=== PATIENT | female | born 1995 | race African-American/Black ===

== ENCOUNTER 2020-03-14 10:39 | Emergency (ER) | payer OTHER ==
[~2020-03-14] VITALS: Ht 162.6 cm; Wt 75.3 kg
--- NOTE | 2020-03-14 10:51 | PHYS DOC ---
Past History Past Medical History: No Pertinent History Adult General Chief Complaint Chief Complaint: OVERDOSE HPI HPI Patient is a 24-year-old female who presents for overdose via EMS. Significant other at home called because patient was more lethargic and somnolent than usual. EMS arrived to scene, patient reportedly took unknown amount of Tylenol and " half a bottle" of cough syrup this morning at 0300 hrs. States she has no suicidal ideations and this was not a suicide attempt, admits " I like feeling numb and this makes me numb. EMS grabbed cough syrup bottle and Tylenol bottle and brought to ER with patient. And route, patient hemodynamically stable with unremarkable [id number] glucose. On arrival to ER, she has no complaints. Admit she is sleepy. No trauma, no reports of physical assault or domestic violence, no fever or COVID-19 contact. After reviewing patient's cough syrup b ottle in Tylenol, it is estimated she took 5 g of Tylenol and the following combination of medications via cough syrup: 2600 mg Tylenol, 120 dextromethorphan, 50 doxylamine Review of Systems Review of Systems Fourteen body systems of review of systems have been reviewed. See HPI for pertinent positives and negative responses, other reeves all other systems are negative, non-pertinent or non-contributory Allergies Allergies Allergies Coded Allergies Type Severity Reaction Last Updated Verified No Known Drug Allergies 03/14/20 No Physical Exam Physical Exam Constitutional: Pt is oriented to person, place, and time. Pt appears sleepy. She is naked on arrival wrapped in a Sommer robe HEENT: Head: Normocephalic and atraumatic. TMs clear, no hemotympanum Conjunctivae and EOM are normal. Pupils are equal, round, and reactive to light. Oropharynx is clear and moist. No hematomas or lacerations or abrasions to face or scalp OP clear, no blood, no malocclusion, dentition intact Nares clear, no nasal septal hematoma, right nose ring in place Midface stable Neck: C-spine midline nontender, no step-offs Cardiovascular: Normal rate, regular rhythm and normal heart sounds. Pulmonary/Chest: Effort normal and breath sounds normal. No respiratory distress. No wheezes. CTA bilaterally Abdominal: Soft. Bowel sounds are normal. Pt exhibits no distension. There is no tenderness. Musculoskeletal: No bony tenderness to extremities, no deformities, full ROM extremities Chest wall stable Pelvis stable and non-tender Neurological: Pt is alert and oriented to person, place, and time. Moving all extremities willfully, able to wiggle all fingers and toes Alert and oriented x 3 Motor and sensory function grossly intact Skin: Skin is warm and dry. No abrasions, no lacerations Psychiatric: Behavior is appropriate for situation Current Patient Data Vital Signs Vital Signs Date Time Temp Pulse Resp B/P (MAP) Pulse Ox O2 Delivery O2 Flow Rate FiO2 03/14/20 10:45 99.3 99 17 112/63 (79) 100 Room Air Lab Results Laboratory Tests Test 03/14/20 10:53 03/14/20 11:05 03/14/20 11:14 03/14/20 12:49 White Blood Count 5.6 x10^3/uL Red Blood Count 4.62 x10^6/uL Hemoglobin 12.2 g/dL Hematocrit 37.6 % Mean Corpuscular Volume 81 fL Mean Corpuscular Hemoglobin 26 pg Mean Corpuscular Hemoglobin Concent 33 g/dL Red Cell Distribution Width 18.3 % Platelet Count 202 x10^3/uL Neutrophils (%) (Auto) 60 % Lymphocytes (%) (Auto) 31 % Monocytes (%) (Auto) 8 % Eosinophils (%) (Auto) 1 % Basophils (%) (Auto) 1 % Neutrophils # (Auto) 3.3 x10^3uL Lymphocytes # (Auto) 1.7 x10^3/uL Monocytes # (Auto) 0.4 x10^3/uL Eosinophils # (Auto) 0.0 x10^3/uL Basophils # (Auto) 0.1 x10^3/uL Prothrombin Time 10.5 SEC Prothromb Time International Ratio 1.0 Activated Partial Thromboplast Time 22 SEC Sodium Level 136 mmol/L Potassium Level 3.6 mmol/L Chloride Level 102 mmol/L Carbon Dioxide Level 23 mmol/L Anion Gap 11 Blood Urea Nitrogen 12 mg/dL Creatinine 0.8 mg/dL Estimated GFR (Cockcroft-Gault) 104.9 BUN/Creatinine Ratio 15 Glucose Level 107 mg/dL Calcium Level 8.5 mg/dL Magnesium Level 1.8 mg/dL Total Bilirubin 0.4 mg/dL Aspartate Amino Transf (AST/SGOT) 14 U/L Alanine Aminotransferase (ALT/SGPT) 21 U/L Alkaline Phosphatase 37 U/L Total Protein 7.7 g/dL Albumin 3.9 g/dL Albumin/Globulin Ratio 1.0 Salicylates Level < 2.8 mg/dL Salicylate Last Dose Date Unknown Salicylate Last Dose Time Unknown Acetaminophen Level 5.4 mcg/mL Acetaminophen Last Dose Date Unknown Acetaminophen Last Dose Time Unknown Ethyl Alcohol Level < 10 mg/dL Urine Collection Type Unknown Urine Color Yellow Urine Clarity Hazy Urine pH 6.5 Urine Specific Wittman 1.025 Urine Protein 30 mg/dl Urine Glucose (UA) Neg mg/dL Urine Ketones (Stick) 15 mg/dL Urine Blood Neg Urine Nitrite Neg Urine Bilirubin Neg Urine Urobilinogen Dipstick 2.0 mg/dL Urine Leukocyte Esterase Neg Urine RBC 0 /HPF Urine WBC Rare /HPF Urine Squamous Epithelial Cells Occ /LPF Urine Bacteria Few /HPF Urine Mucus Slight /LPF Urine Opiates Screen Neg Urine Methadone Screen Neg Urine Barbiturates Neg Urine Phencyclidine Screen Neg Urine Amphetamine/Methamphetamine Neg Urine Benzodiazepines Screen Neg Urine Cocaine Screen Pos Urine Cannabinoids Screen Pos Urine Ethyl Alcohol Neg Bedside Urine HCG, Qualitative hcg positive SARS-CoV-2 Antigen (Rapid) Negative Test 03/14/20 13:43 Acetaminophen Level 4.9 mcg/mL Acetaminophen Last Dose Date Unknown Acetaminophen Last Dose Time Unknown Current Medications Medications (Trade) Dose Ordered Sig/Yady Route PRN Reason Start Time Stop Time Status Last Admin Dose Admin Sodium Chloride 1,000 ml @ 1,000 mls/hr Q1H IV 03/14/20 11:00 03/14/20 11:59 DC 03/14/20 11:01 EKG EKG EKG ordered and interpreted by myself at 1118 hrs. as sinus rhythm at 68 bpm, unremarkable intervals, no axis deviation, no acute ischemic findings, no STEMI Radiology/Procedures Radiology/Procedures [] Heart Score HEART Score for Chest Pain: HEART Score for Chest Pain Response (Comments) Value History Slighlty/Non-Suspicious 0 ECG Normal 0 Age < 45 0 Risk Factors No Risk Factors 0 Troponin < Normal Limit 0 Total 0 Risk Factors: Risk Factors: DM, Current or recent (<one month) smoker, HTN, HLP, family history of CAD, obesity. Risk Scores: Risk Factors: DM, Current or recent (<one month) smoker, HTN, HLP, family history of CAD, obesity. Course & Med Decision Making Course & Med Decision Making Patient initially seen and evaluated by myself. ABCs unremarkable. Poison control called after initial assessment and patient As discussed, it was determined that patient's first ingestion of toxic materials was 0300 hrs. today. As such, typical tox work-up pursued. Poison control recommended repeat 2-hour level that was also unremarkable. After initial Tylenol level that was grossly nonconcerning, patient was medically cleared by myself. Behavioral health specialist personally came and evaluated patient as well. After extensive conversation, he was determined that this was not suicidal intent in nature. Patient recently found out that the father of her children has been having a long-term affair with another male who has been living in their house with them as of recently. Patient demonstrated forward thinking, has good access to outpatient medical and mental health care, has good family support whom she plans to lean on. I agree with qualified mental health assessment that patient is safe for discharge home. They have a plan for psychiatric follow up and a safe place to stay with access to physical and emotional support. Dragon Disclaimer Dragon Disclaimer This electronic medical record was generated, in whole or in part, using a voice recognition dictation system. Departure Departure: Impression: Primary Impression: Accidental overdose Additional Impressions: Illicit drug use Disposition: 01 DC HOME SELF CARE/HOMELESS Condition: STABLE Referrals: PCP,UNKNOWN (PCP) Patient Instructions: ABCs of Additional Instructions: You were seen in our ER for problems noted above. You need to call primary care physician as soon as possible to discuss following up in outpatient setting after ER departure for repeat examination and evaluation. In addition, you need to reestablish with prior [facility] to schedule first outpatient [facility] visit. If any concerning signs or symptoms present prior to outpatient follow-up please do not hesitate to come back for repeat evaluation. It was a pleasure to take care of you and I wish you the best going forward Problem Qualifiers SHAHIDA MANN DO Mar 14, 2020 10:51
[2020-03-14] MEDS ORDERED: IV NORMAL SALINE 1,000ML 1,000 ML IV SCH (11:00)
[2020-03-14 11:12] LABS: BASO # 0.1 x10^3/uL (0.0-0.2); BASO % 1 % (0-3); EOS % 1 % (0-3); HEMATOCRIT 37.6 % (36.0-47.0); HEMOGLOBIN 12.2 g/dL (12.0-15.5); LYMPH # 1.7 x10^3/uL (1.0-4.8); LYMPH % 31 % (24-48); MEAN CORPUSCULAR HEMOGLOBIN 26 pg (25-35); MEAN CORPUSCULAR HGB CONC 33 g/dL (31-37); MEAN CORPUSCULAR VOLUME 81 fL (79-100); MONO # 0.4 x10^3/uL (0.0-1.1); MONO % 8 % (0-9); NEUT # 3.3 x10^3uL (1.8-7.7); NEUT % 60 % (31-73); PLATELET COUNT 202 x10^3/uL (140-400); RED BLOOD COUNT 4.62 x10^6/uL (3.50-5.40); RED CELL DISTRIBUTION WIDTH 18.3 % (11.5-14.5); WHITE BLOOD COUNT 5.6 x10^3/uL (4.0-11.0)
[2020-03-14 11:19] LABS: CALCIUM 8.5 mg/dL (8.5-10.1); CREATININE 0.8 mg/dL (0.6-1.0); GFR 104.9; POTASSIUM 3.6 mmol/L (3.5-5.1)
--- NOTE | 2020-03-14 11:21 | EKG ---
[address] [address] Test Date: 2020-03-14 Test Time: 11:14:28 Pat Name: JHONNY BURT Department: Room: Gender: F Sas Programmer Analyst: : 1995 Requested By: SHAHIDA MANN Order Number: [id number] Reading MD: Measurements Intervals [place] Rate: 68 P: 41 VA: 148 QRS: 51 QRSD: 86 T: 43 QT: 378 QTc: 406 Interpretive Statements SINUS RHYTHM OTHERWISE NORMAL ECG RI6.02 No previous ECG available for comparison
[2020-03-14 11:26] LABS: ALBUMIN 3.9 g/dL (3.4-5.0); MAGNESIUM 1.8 mg/dL (1.8-2.4); TOTAL BILIRUBIN 0.4 mg/dL (0.2-1.0); TOTAL PROTEIN 7.7 g/dL (6.4-8.2)
[2020-03-14 11:27] LABS: ACETAMIN 5.4 mcg/mL (10-30); ETHANOL < 10 mg/dL (0-10); SALIC < 2.8 mg/dL (2.8-20.0)
[2020-03-14 11:30] LABS: BARBITURATES NEG (NEG); BENZODIAZEPINES NEG (NEG); CANNABINOIDS POS (NEG); COCAINE POS (NEG); METHADONE NEG (NEG); OPIATES NEG (NEG); PHENCYCLIDINE NEG (NEG)
[2020-03-14 11:31] LABS: AMPHETAMINE/METHAMPHETAMINE NEG (NEG)
[2020-03-14 11:50] LABS: BACTERIA,URINE FEW /HPF (0-FEW); BILIRUBIN,URINE NEG (NEG); CLARITY,URINE HAZY; COLOR,URINE YELLOW; GLUCOSE,URINE NEG (NEG); NITRITE,URINE NEG (NEG); RBC,URINE 0 /HPF (0-2); SQUAMOUS EPITHELIAL CELL,UR OCC /LPF; WBC,URINE RARE /HPF (0-4)
[2020-03-14 14:18] LABS: ACETAMIN 4.9 mcg/mL (10-30)
[2020-03-14 14:40] VITALS: BP 131/51
--- NOTE | 2020-03-16 10:48 | NUR ---
IP: notified patient of COVID result.
== END 2020-03-14 14:50 | disposition home or self-care (01) ==
LOC: ER 10:39
DX: O26.891 Other specified pregnancy related conditions, first trimester (principal); T65.891A Toxic effect of other specified substances, accidental (unintentional), initial encounter; Z20.828 Contact with and (suspected) exposure to other viral communicable diseases; R05 Cough; F19.10 Other psychoactive substance abuse, uncomplicated; Y92.89 Other specified places as the place of occurrence of the external cause; Z3A.00 Weeks of gestation of pregnancy not specified
CPT/HCPCS: 36415; 80053; 80307; 80329; 81001; 81025; 83735; 85025; 85610; 85730; 87426; 93005; 96360; 96361; 99285; G0480; J7030; U0003; C9803